=== PATIENT | female | born 1950 | race Caucasian/White ===

== ENCOUNTER 2018-12-05 13:28 | Outpatient (CLI) | payer MEDICARE, BC ==
--- NOTE | 2018-12-05 16:43 | MRI ---
PRE AND POSTCONTRAST ENHANCED MRI IMAGES BRAIN 12/05/18 HISTORY: Transient cerebral ischemic attack, G45.9. Multiplanar and multisequence pre and postcontrast enhanced MRI images of the brain are obtained. Images demonstrate moderate left to right nasal septal deviation. The parotid glands are unremarkable. The orbits are unremarkable. Multiple areas of periventricular white matter lesion seen on T2 weighted sequences compatible with d eep white matter ischemic changes. No evidence of areas of diffusion restriction seen to suggest acut e strokes. Normal flow voids seen in the major intracranial vessels. Some deep pontine areas of signal abnormality seen compatible with white matter ischemic changes. IMPRESSION: Deep white matter ischemic changes otherwise unremarkable pre and postcontrast enhanced MRI images of the brain. POS: JODI
== END 2018-12-05 13:29 | disposition home or self-care (01) ==
LOC: SCSMRI 13:28
PROVIDERS: ATTEND Psychiatry & Neurology Neurology
DX: G45.9 Transient cerebral ischemic attack, unspecified (principal)
CPT/HCPCS: 70553; 82565